=== PATIENT | female | born 1980 | race Hispanic/Latino ===

== ENCOUNTER 2019-07-09 14:30 | Emergency (ER) | payer BC, MEDICAID, OTHER ==
[2019-07-09 15:36] LABS: BASOPHILS % (AUTO) 0.5 % (0.0-5.0); EOSINOPHILS % (AUTO) 1.6 % (0.0-8.0); HEMATOCRIT 37.5 % (36-48); LYMPHOCYTES % (AUTO) 33.1 % (21.0-51.0); MEAN CORPUSCULAR HEMOGLOBIN 34.3 pg (27.0-33.0); MEAN CORPUSCULAR HGB CONC 35.9 g/dL (32.0-36.0); MEAN CORPUSCULAR VOLUME 95.6 fL (79-99); MONOCYTES % (AUTO) 8.9 % (3.0-13.0); NEUTROPHILS % (AUTO) 55.9 % (40.0-77.0); NUCLEATED RED BLOOD CELLS 0.1 % (0.0-0.19); PLATELET COUNT (AUTO) 378 K/uL (130-400); RED BLOOD CELL COUNT(AUTO) 3.93 MIL/uL (4.00-5.50); RED CELL DISTRIBUTION WIDTH 12.9 % (11.0-15.5); WHITE BLOOD COUNT (AUTO) 8.7 K/uL (4.8-10.8)
[2019-07-09 15:38] LABS: APPEARANCE,URINE SL CLOUDY (CLEAR); BILIRUBIN,URINE NEGATIVE (NEGATIVE); COLOR,URINE YELLOW (YELLOW); GLUCOSE, URINE (UA) NEGATIVE (NEGATIVE); KETONES,URINE NEGATIVE (NEGATIVE); LEUKOCYTE ESTERASE ,URINE TRACE (NEGATIVE); NITRATE,URINE NEGATIVE (NEGATIVE); OCCULT BLOOD,URINE NEGATIVE (NEGATIVE); PH,URINE 5.5 (5.0-8.0); PROTEIN,URINE NEGATIVE (NEGATIVE); UROBILINOGEN,URINE 0.2 mg/dL (0.2-1.0)
[2019-07-09 15:43] LABS: HCG,QUAL RESULT NEGATIVE (NEGATIVE)
[2019-07-09 15:45] LABS: AMPHET/METH SCREEN,URINE NEGATIVE (NEGATIVE); BARBITURATE SCREEN, URINE NEGATIVE (NEGATIVE); BENZODIAZEPINES SCREEN,URINE NEGATIVE (NEGATIVE); CANNABINOID SCREEN,URINE NEGATIVE (NEGATIVE); COCAINE SCREEN,URINE NEGATIVE (NEGATIVE); OPIATE SCREEN,URINE NEGATIVE (NEGATIVE); PHENCYCLIDINE SCREEN,URINE NEGATIVE (NEGATIVE)
[2019-07-09 15:46] LABS: CREATININE 0.8 mg/dL (0.5-1.5); POTASSIUM 3.7 mmol/L (3.5-5.1)
[2019-07-09 15:50] LABS: ALBUMIN 3.3 g/dL (3.5-5.0); BILIRUBIN,TOTAL 0.2 mg/dL (0.2-1.0); TOTAL PROTEIN, SERUM 7.5 g/dL (6.0-8.3)
[2019-07-09 15:51] LABS: BACTERIA,URINE Few /HPF (None Seen); CALCIUM OXALATE CRYSTALS,UR Few /LPF (None Seen); MUCUS,URINE Few LPF (None Seen); RBC,URINE 0-1 /HPF (0-1); SQUAMOUS EPITHELIAL CELL,UR Moderate /HPF (0-2)
[2019-07-09 16:00] LABS: INR 0.93 (0.85-1.15); PARTIAL THROMBOPLASTIN TIME 33.4 SEC (26.3-35.5); PROTHROMBIN TIME 9.8 SEC (9.6-11.6)
[2019-07-09] MEDS ORDERED: ASPIRIN 325MG EC TAB 325 MG TABLET.DR PO ONE (16:17)
== END 2019-07-09 18:45 | disposition home or self-care (01) ==
LOC: EDH 14:30
DX: R07.89 Other chest pain (principal); R03.0 Elevated blood-pressure reading, without diagnosis of hypertension; F31.9 Bipolar disorder, unspecified; F20.9 Schizophrenia, unspecified; Z72.0 Tobacco use
CPT/HCPCS: 36415; 71045; 80053; 80305; 81001; 81025; 82550; 84443; 84484; 85025; 85610; 85730; 93005

== ENCOUNTER 2019-07-21 20:10 | Emergency (ER) | payer MEDICAID ==
[2019-07-21] MEDS ORDERED: DEXAMETHASONE SOD PHOSPHATE 10MG/ML 1ML VIAL ONE (20:42)
[2019-07-21] MEDS ORDERED: KETOROLAC TROMETHAMINE 60 MG/2 ML VIAL ONE (20:43)
== END 2019-07-21 20:58 | disposition home or self-care (01) ==
LOC: EDH 20:10
DX: J02.9 Acute pharyngitis, unspecified (principal); F31.9 Bipolar disorder, unspecified; F20.9 Schizophrenia, unspecified; Z72.0 Tobacco use; Z79.899 Other long term (current) drug therapy
CPT/HCPCS: 96372 ×2; 99284; J1100; J1885

== ENCOUNTER 2025-07-12 10:29 | Emergency (ER) | payer MEDICAID ==
[~2025-07-12] VITALS: Ht 149.9 cm; Wt 79.4 kg
[2025-07-12] MEDS ORDERED: CETI10TA57 PO (10:44)
[2025-07-12] MEDS ORDERED: prednisone PO (10:44)
[2025-07-12] MEDS ORDERED: IBUP-2784 PO (10:45)
--- NOTE | 2025-07-12 10:45 | ERN ---
ED Note History of Present Illness Stated Complaint: ALLERGIC REACTION Chief Complaint: Allergic Reaction Time Seen by MD: 10:31 Time Seen by Midlevel: 10:33 Dictation: Ms. Florian is a 45-year-old female with history of hyperlipidemia, chronic sinusitis, schizophrenia, and obesity who presented to the emergency department this morning for evaluation following bee sting. She states that she sustained stings to her forehead and scalp yesterday at approximately 5:00 p.m.. She states that she took a dose of Benadryl last night and went to bed. When she woke this morning she noted swelling to the left side of her face and eyelid. She took an additional dose of Benadryl 25 mg at 0900. She also mentions that she has some itching and burning pain to her right foot secondary to bee stings she sustained 2-3 days ago. She is advised her landlord a situation and has been told he will be taking care of the situation. She denies shortness of breath, wheezing, difficulty swallowing, or difficulty speaking. Denies fever, chills,cough, chest pain, palpitations, edema, abdominal pain, nausea, vomiting, hematemesis, constipation, diarrhea, melena, hematochezia, dysuria, headache, dizziness, or focal weakness/paresthesia. Allergies: Coded Allergies: No Known Drug Allergies (Unverified Allergy, Unknown, 07/12/25) Home Meds Active Scripts Famotidine (Pepcid) 20 Mg Tablet, 1 TAB PO BID for 7 Days, #14 TAB 0 Refills Prov:DANA STOVER NP 07/12/25 Ibuprofen (Ibuprofen 200 mg Tablet) 200 Mg Tablet, 400 MG PO q8 hours pRN, #15 TAB Prov:DANA STOVER NP 07/12/25 [prednisone] No Conflict Check, 20 MG PO BID for 3 Days, #6 TAB 0 Refills Prov:DANA STOVER NP 07/12/25 Cetirizine HCl (Cetirizine HCl) 10 Mg Tablet, 1 TAB PO DAILY for allergy symptoms for 7 Days, #7 TAB 0 Refills Prov:DANA STOVER NP 07/12/25 Past Medical History Past Medical History: Other (Obesity, chronic sinusitis) PSYCH History: no pertinent psych hx Social History: Negative, Lives with family RN Note Reviewed/Agreed w/PFSH: Yes Review of System Dictation REVIEW OF SYSTEMS: CONSTITUTIONAL: Patient denies fevers, chills, sweats and weight changes. EYES: Patient denies any visual symptoms. Reports swelling left eyelid EARS, NOSE, AND THROAT: No difficulties with hearing. No symptoms of rhinitis or sore throat. CARDIOVASCULAR: Patient denies chest pains, palpitations, orthopnea and pa roxysmal nocturnal dyspnea. RESPIRATORY: No dyspnea on exertion, no wheezing or cough. GI: No nausea, vomiting, diarrhea, constipation, abdominal pain, hematochezia or melena. : No urinary hesitancy or dribbling. No nocturia or urinary frequency. No abno rmal urethral discharge. MUSCULOSKELETAL: No myalgias or arthralgias. NEUROLOGIC: No chronic headaches, no seizures. Patient denies numbness, tingling or weakness. PSYCHIATRIC: Patient denies problems with mood disturbance. No problems with anxiety. ENDOCRINE: No excessive urination or excessive thirst. DERMATOLOGIC: Reports itching and burning to forehead and right foot secondary to bee stings. Reports swelling to the left side of face. Reports swelling to left eyelid States she was stung on right foot a few days ago. Last evening at 1700 she was stung again to forehead/scalp. Initial Vital Sign VS Vital Signs Date Time Temp Pulse Resp B/P (MAP) Pulse Ox O2 Delivery O2 Flow Rate FiO2 07/12/25 10:31 97.5 79 16 101/72 99 Room Air 0 07/12/25 10:36 21 Physical Exam Dictation Vital signs: Reviewed. Afebrile. Constitutional: No acute distress. Non-toxic appearing. Was not/calm Head/Face: There is edema to the left cheek/side of face/left eyelid Eyes: Periorbital areas with no swelling, redness, or edema. Lids and lashes are normal. Conjunctival injection is absent. Sclera anicteric. Pupils equal, round, reactive to light. ENT: Pinnas intact and no signs of trauma or erythema. Ear canals clear and no discharge. TMs no erythema. No nasal discharge or bleeding noted. Oropharynx with no exudate, redness, swelling, masses, exudates, or evidence of obstruction. Uvula midline. Mucous membranes moist. Voice is clear. Drinking water without difficulty. Neck: Trachea midline, no masses palpated, and no cervical lymphadenopathy. No swelling. Supple, full range of motion. Chest/Axilla: No tenderness, no crepitus, no paradoxical movement, no retractions. Cardiovascular: Regular rate, regular rhythm, no murmur, no gallops. Symmetric pulses. No peripheral edema. Respiratory: Respirations even and unlabored. Lung sounds clear; no wheezes, rales or rhonchi. Room air SpO2 99% Gastrointestinal: Inspection is normal. No distention is appreciated. Bowel sounds are normal. No mass or organomegaly . There is no tenderness. No rebound. No rigidity. No voluntary or involuntary guarding. No Alarcon's sign. Neurological: Normal speech, gross motor function intact, gross sensory functi on intact. No focal weakness/Paresthesia. Musculoskeletal/Extremities: All extremities have full range of motion, no pain or tenderness on palpation. Symmetric pulses. Integumentary: . Skin is normal color, warm and dry. Cap refill less than 2 seconds. Stings noted to forehead, scalp, and right foot. Areas with slight erythema and edema. No warmth . No draining wounds ED Course ED Course Orders Procedure Category Date Status Time Cetirizine Hcl 5 Mg PHA 07/12/25 Complete Tablet (Zyrtec 5 Mg 11:00 Prednisone 20mg Tab PHA 07/12/25 Complete (Deltasone/Orasone 2 11:00 Ibuprofen 600 Mg PHA 07/12/25 Complete Tablet (Motrin) 11:00 Famotidine 20mg Tab PHA 07/12/25 Complete (Pepcid 20mg Tab) 11:00 Current Medications Medications (Trade) Dose Ordered Sig/Ant Route PRN Reason Start Time Stop Time Status Last Admin Dose Admin Cetirizine HCl (ZYRtec 5 MG TABLET) 10 mg ONCE ONCE PO 07/12/25 11:00 07/12/25 11:01 DC 07/12/25 11:00 Famotidine (Pepcid 20mg Tab) 20 mg ONCE ONCE PO 07/12/25 11:00 07/12/25 11:01 DC 07/12/25 10:59 Ibuprofen (moTRIN) 600 mg ONCE ONCE PO 07/12/25 11:00 07/12/25 11:01 DC 07/12/25 10:59 Prednisone (deltaSONE/ oraSONE 20MG TAB) 20 mg ONCE ONCE PO 07/12/25 11:00 10/3/25 11:01 DC 07/12/25 10:59 Vital Signs Date Time Temp Pulse Resp B/P (MAP) Pulse Ox O2 Delivery O2 Flow Rate FiO2 07/12/25 11:25 98.1 67 12 115/80 100 Room Air* 0 21 07/12/25 10:51 98.1 71 20 123/78 99 Room Air* 0 21 07/12/25 10:36 97.5 79 16 101/72 99 Room Air* 0 21 07/12/25 10:31 97.5 79 16 101/72 99 Room Air 0 Uneventful ED course. Vital signs stable; afebrile with room air SpO2 99%. Normotensive. Patient able to drink fluids without difficulty. Voice is clear/airway patent. Continues with burning type pain. She received doses prednisone, ibuprofen, famotidine, and cetirizine. Patient will be discharged to home. All questions were answered. I reinforced the importance of advising landlord of his responsibility to remove bees to prevent further incidents/sting. Medical Decision Making MDM MDM: Differential diagnosis: Bee sting, localized allergic reaction, angioedema Rationale: Tests considered and ordered secondary to shared decision making include: Examination Previous outside records reviewed: Old ER visits. Risk of complication and/or morbidity or mortality of patient management: None Medications-Per medication reconciliation Need for hospitalization: Patient does not meet criteria for hospitalization. Need for emergency major/minor surgery: No There are no social concerns with this patient. Prescription drug management: Cetirizine, ibuprofen, prednisone, famotidine Prescriptions will include symptomatic care Patient's prior external medical records from other ER visits were reviewed by me as indicated. Prior testing and results from previous visits were reviewed. Prior tests were taken into account with medical decision making and resource utilization, independent historian/historians were used to obtain complete medical history. I independently interpreted the test that were performed, results were reviewed by me and considered findings on radiology if ordered. Medical management and examination interpretation discussions were had by me with other qualified healthcare professionals as indicated for the patient's care. DX & DISP Disposition: Discharge Departure Impression: Primary Impression: Bee sting Additional Impression: localized allegic reaction Condition: Stable Scripts Famotidine (Pepcid) 20 Mg Tablet 1 TAB PO BID for 7 Days, #14 TAB 0 Refills Prov: DANA STOVER LEGISLATIVE AIDE 07/12/25 Ibuprofen (Ibuprofen 200 mg Tablet) 200 Mg Tablet 400 MG PO q8 hours pRN, #15 TAB Prov: DANA STOVER NP 07/12/25 [prednisone] No Conflict Check 20 MG PO BID for 3 Days, #6 TAB 0 Refills Prov: DANA STOVER LEGISLATIVE AIDE 07/12/25 Cetirizine HCl (Cetirizine HCl) 10 Mg Tablet 1 TAB PO DAILY for allergy symptoms for 7 Days, #7 TAB 0 Refills Prov: DANA STOVER LEGISLATIVE AIDE 07/12/25 Additional Instructions: Apply cold compresses to swollen areas for 10-15 minutes several times a day. Keep your head elevated, especially when lying down, to help facial swelling drain. Avoid scratching at the sting sites. Wear loose clothing and avoid pressure and swollen areas. Swelling often fixe 24-36 hours after stings, then gradually improves. Facial/eyelid swelling can take 2-3 days to fully subside. Foot swelling may take a bit longer but should steadily get better. Continue Pepcid twice daily for seven days, prednisone 20 mg twice daily for three days, and cetirizine one tablet daily for allergy symptoms. You may take over-the- counter Benadryl as needed in the evening as this may be sedating. May take ibuprofen 400 mg every 8 hours as needed for discomfort. Return to the emergency department or call 911 immediately if you develop: Difficulty breathing, swallowing, or speaking. Swelling of the tongue or inside the mouth. Rapidly worsening swelling of the face or throat. Dizziness, fainting, or vomiting. Fever, increasing pain, spreading redness or signs of infection. Her swelling is not improving after 48 hours, or symptoms worsen, follow up with your primary care provider or urgent care. Consider allergy referral if reactions worsened with future stings. Notify your landlord in writing immediately of incident. Written noticed some important because most states consider pest infestations a landlord responsibility, especially when it involves safety hazards like bees, wasps, or hornets. Landlord's are required keep this property safe and habitable. If they refuse or delay: Check with your local health department or code enforcement-many city street be investigations as public safety hazard will require landlord's to act. Referrals: AGUS HERNANDEZ DO (PCP) Time of Disposition: 10:59 I have reviewed the case, and I agree with, Diagnosis and Plan I have examined patient, & reviewed all documents, & agreed W/ the Diagnosis, and Plan DANA STOVER NP Jul 12, 2025 10:45 MAXINE MARTINEZ MD Jul 13, 2025 07:02
[2025-07-12] MEDS ORDERED: FAMO-136 PO (10:51)
[2025-07-12] MEDS: FAMOTIDINE 20MG TAB PO ONE (10:59)
--- NOTE | 2025-07-12 11:24 | NUR ---
DC PATIENT WAS DC'D BY anali cuevas I DC'D PATIENTS IV WITH CATH STILL INTACT AND APPLIED 2X2 GAUZE WITH COBAN, I EXPLAINED TO PATIENT TO FOLLOW UP WITH PCP, PROVIDED INFO BASED ON DIAGNOSIS, PRESCRIPTIONS AND ANSWERED ANY FOLLOW UP QUESTIONS, PATIENT AMBULATED OUT OF ED, NO COMPLICATIONS
[2025-07-12 11:25] VITALS: BP 115/80; PULSE 67; RESP 12; TEMP 98; O2SAT 100
== END 2025-07-12 11:24 | disposition home or self-care (01) ==
LOC: EDH 10:29
DX: T63.441A Toxic effect of venom of bees, accidental (unintentional), initial encounter (principal); E66.9 Obesity, unspecified; Z79.899 Other long term (current) drug therapy; Z68.35 Body mass index [BMI] 35.0-35.9, adult; Y92.89 Other specified places as the place of occurrence of the external cause
CPT/HCPCS: 99284